=== PATIENT | male | born 1950 | race Caucasian/White ===

== ENCOUNTER 2019-07-10 09:39 | Day surgery (SDC) | payer MEDICARE, OTHER ==
[2019-07-10 11:11] VITALS: BMI 32.4
[2019-07-10] MEDS ORDERED: MIDAZOLAM HCL 2 MG/2 ML SINGLE DOSE VIAL ONE (14:09)
[2019-07-10] MEDS ORDERED: ceFAZolin SODIUM 1 GM VIAL IVPB ONE (14:10)
--- NOTE | 2019-07-10 14:14 | CONS ---
DATE OF CONSULTATION: DATE OF DICTATION: 07/10/2019 HISTORY: Patient is a 68-year-old male admitted for prostatism, will undergo a transurethral resection of the prostate. He has been having symptoms of frequency, urgency, nocturia, dribbling and feelings of incomplete bladder emptying. PAST MEDICAL HISTORY: He does have a history of diabetes, high blood pressure, COPD as well as cholesterol. ALLERGIES: He denies any allergies. MEDICATIONS: He is on metformin, lisinopril, Crestor and Ventolin. He underwent a medical and a cardiology clearance. He also takes gabapentin for peripheral neuropathy. PHYSICAL EXAMINATION: General: Presently he is alert, oriented. Chest: Clear. Heart: Regular. Abdomen: Soft. No CVA tenderness. Genitalia: Atraumatic. No hernias or hydroceles are elicited. Phallus is normal. Meatus is adequate. Testes are normal in size and consistency. Rectal: Prostate is 2+, smooth, nontender. Extremities: Reveal full range of motion with no cyanosis, clubbing or edema. DIAGNOSTIC DATA: Patient's PSA is 1.03. BUN is 12 and creatinine 0.9. IMPRESSION AT PRESENT: Benign prostatic hypertrophy with lower urinary tract symptoms. PLAN: For a TURP, TUVP. This was explained fully to the patient and he agrees. [id number]
[2019-07-10] MEDS ORDERED: LIDOCAINE HCL 2% JELLY 10 ML CARTRIDGE ONE (14:46)
--- NOTE | 2019-07-10 15:07 | OP ---
Operative Note - Note: Operative Date: 07/10/19 Pre-Operative Diagnosis: bph with luts Operation: turp/tuvp Findings: trilobar hypertrophy of prostate Post-Operative Diagnosis: Same as Pre-op Surgeon: Nick Wilkerson Anesthesia: General Specimens Removed: prostate chips Estimated Blood Loss (mls): 50 Drains & Tubes with Location: 26f-30cc cisse Drains, Volume Out (mls): 0 Blood Volume Replaced (mls): 0 Fluid Volume Replaced (mls): 0 Operative Report Dictated: Yes
[2019-07-10] MEDS ORDERED: ONDANSETRON 4 MG/2 ML VIAL IVPUSH PRN ×2 (15:35→17:07)
[2019-07-10] MEDS ORDERED: LACTATED RINGERS SOLUTION 1,000 ML IV SCH (15:45)
--- NOTE | 2019-07-10 16:14 | OP ---
DATE OF OPERATION: 07/10/2019 PREOPERATIVE DIAGNOSIS: Benign prostatic hypertrophy with lower urinary tract symptoms. POSTOPERATIVE DIAGNOSIS: Trilobar hypertrophy of the prostate with a grade 2 trabeculated bladder. OPERATIVE PROCEDURE: Cystourethroscopy, transurethral resection and transurethral vaporization of prostate. ANESTHESIA: General. Under above-stated anesthesia, patient was prepped and draped in the usual sterile manner. He was placed in the dorsal lithotomy position. Cystoscopy revealed a normal anterior urethra. Prostatic urethra revealed trilobar hypertrophy of the prostate. There was lateral lobe kissing. The bladder was entered, 200 mL of urine was drained. Inspection of the bladder revealed a grade 2 to 3 trabeculation throughout. No lesions were noted. No calculi were seen. Ureteral orifices were within normal limits with efflux of clear urine. A resectoscope was inserted. Using a bipolar loop, resection of the prostate was performed in the usual fashion. Hemostasis was secured with electrocoagulation. Prostate chips were evacuated with an [employer] evacuator. A button was then introduced and excess tissue was vaporized. Again no active bleeding was noted. The scope was removed. The 26-Bulgarian 30 mL Elder was inserted. This was connected to a leg bag. The patient tolerated the procedure well. He returned to the recovery room in good condition. [id number]
[2019-07-10] MEDS ORDERED: PROMETHAZINE HCL 25 MG/1 ML VIAL IVPUSH PRN (17:07)
[2019-07-10] MEDS ORDERED: oxyCODONE HCL 5 MG TABLET PO PRN (17:07)
[2019-07-10] MEDS ORDERED: ONDANSETRON 4 MG/2 ML VIAL ONE (17:16)
[2019-07-10] MEDS ORDERED: ONDANSETRON 4 MG/2 ML VIAL IVPUSH ONE (17:20)
[2019-07-10] MEDS ORDERED: oxyCODONE HCL 5 MG TABLET ONE (18:22)
[2019-07-10] MEDS ORDERED: oxyCODONE HCL 5 MG TABLET PO ONE (18:25)
[2019-07-10 20:07] VITALS: BP 149/72; PULSE 75; TEMP 97.4
--- NOTE | 2019-07-13 16:07 | PATH ---
Surgical Pathology Report Patient Name: SCOTTY VALENZUELA V. [facility]. Rec. #: [id number] /Age/Gender: 1950 (Age: 68) / M Account: [id number] Location: [facility] SURGICAL Taken: 07/10/2019 Received: 07/11/2019 Reported: 07/13/2019 Physicians: Nick Wilkerson M.D. Specimen(s) Received PROSTATE TISSUE Clinical History Hypertrophy of prostate Final Diagnosis PROSTATE TISSUE, TRANSURETHRAL RESECTION OF PROSTATE: BENIGN PROSTATIC TISSUE WITH CHRONIC FOCAL ACUTE INFLAMMATION, ACINAR ATROPHY, CYSTIC CHANGES, GLANDULAR AND STROMAL HYPERPLASIA. CYSTITIS CYSTICA AND CYSTITIS GLANDULARIS. Electronically Signed Asiya Pollard M.D. Gross Description Received in formalin labeled "prostate tissue," is a 3 g, 4.5 x 4.0 x 0.4 cm aggregate of neri, firm to rubbery tissue fragments, consistent with prostate chips. The specimen is entirely submitted in 4 cassettes. /07/11/2019 [facility]07/11/2019
== END 2019-07-10 19:50 | disposition home or self-care (01) ==
LOC: JASU-SURG 09:39
PROVIDERS: ATTEND Urology
PROC: 0VT08ZZ Resection of Prostate, Via Natural or Artificial Opening Endoscopic (ICD-10-PCS; principal; 2019-07-10 12:00)
DX: N40.1 Benign prostatic hyperplasia with lower urinary tract symptoms (principal); N32.89 Other specified disorders of bladder; E11.9 Type 2 diabetes mellitus without complications; Z79.84 Long term (current) use of oral hypoglycemic drugs
CPT/HCPCS: 82962; 87086; 88305-TC; 94760